=== PATIENT | male | born 1945 | race Caucasian/White ===

== ENCOUNTER 2023-10-14 11:30 | Inpatient (IN) | payer BC, MEDICARE, OTHER ==
[~2023-10-14] VITALS: Ht 180.3 cm; Wt 72.6 kg
[2023-10-14] MEDS ORDERED: METF-442 PO (11:49)
[2023-10-14] MEDS ORDERED: TAMS-3 PO (11:49)
[2023-10-14] MEDS ORDERED: ATOR10TA PO (11:49)
[2023-10-14] MEDS ORDERED: INSU3INS6 SQ (11:49)
[2023-10-14] MEDS ORDERED: RIVA10TA PO (11:49)
[2023-10-14] MEDS ORDERED: BUME2TAB7 PO (11:49)
[2023-10-14] MEDS ORDERED: IRBE150T28 PO (11:49)
[2023-10-14 12:11] LABS: BASOPHILS % (AUTO) 0.5 % (0.0-2.0); EOSINOPHILS # (AUTO) 0.2 K/uL (0.0-0.7); HEMATOCRIT 42.3 % (36.7-47.1); HEMOGLOBIN 14.5 g/dL (12.5-16.3); LYMPHOCYTES # (AUTO) 1.5 K/uL (0.8-4.8); LYMPHOCYTES % (AUTO) 17.8 % (20.5-51.5); MEAN CORPUSCULAR HEMOGLOBIN 31.3 uug (23.8-33.4); MEAN CORPUSCULAR HGB CONC 34 g/dL (32.5-36.3); MEAN CORPUSCULAR VOLUME 91.5 fL (73.0-96.2); MONOCYTES # (AUTO) 0.7 K/uL (0.1-1.30); NEUTROPHILS # (AUTO) 5.9 K/uL (1.8-8.9); NEUTROPHILS % (AUTO) 71.7 % (38.5-71.5); PLATELET COUNT (AUTO) 225 K/uL (152-348); RED BLOOD CELL COUNT(AUTO) 4.62 MIL/uL (4.06-5.63); RED CELL DISTRIBUTION WIDTH 14.2 % (12.1-16.2); WHITE BLOOD COUNT (AUTO) 8.2 K/uL (3.6-10.2)
[2023-10-14 12:25] LABS: DIFFERENTIAL COMMENT 1
[2023-10-14 12:46] LABS: AMMONIA 15 umol/L (11-32)
[2023-10-14 12:52] LABS: CALCIUM 9.2 mg/dL (8.5-10.1); CARBON DIOXIDE 32 mmol/L (21-32); CHLORIDE 99 mmol/L (98-107); CREATININE 1.4 mg/dL (0.6-1.3); GLUCOSE 129 mg/dL (74-106); POTASSIUM 3.7 mmol/L (3.5-5.1); SODIUM SERUM 139 mmol/L (136-145); UREA NITROGEN, BLOOD 32 mg/dL (7-18)
[2023-10-14 13:00] LABS: ALANINE AMINOTRANSFERASE 18 U/L (16-63); ALBUMIN 3.2 g/dL (3.4-5.0); ALKALINE PHOSPHATASE 155 U/L (50-136); ASPARTATE AMINOTRANSFERASE 19 U/L (15-37); BILIRUBIN,DIRECT 0.2 mg/dL (0.0-0.2); BILIRUBIN,TOTAL 0.9 mg/dL (0.2-1.0); TOTAL PROTEIN, SERUM 8.2 g/dL (6.4-8.2)
[2023-10-14 13:02] LABS: ETHANOL < 3 MG/DL (0-10)
[2023-10-14 13:20] LABS: ACETAMINOPHEN < 2.0 ug/mL (10-30)
[2023-10-14 13:24] LABS: LACTIC ACID 2.1 mmol/L (0.4-2.0)
[2023-10-14] MEDS ORDERED: hydrALAZINE HCL 25 MG TABLET PO PRN (17:15)
[2023-10-14] MEDS ORDERED: ACETAMINOPHEN 325 MG TABLET PO PRN (17:15)
[2023-10-14] MEDS ORDERED: ONDANSETRON 4 MG/2 ML VIAL IV PRN (17:15)
[2023-10-14] MEDS ORDERED: DEXTROSE 50% 50 ML DISP.SYRIN IV PRN (17:15)
[2023-10-14] MEDS ORDERED: TEMAZEPAM 15 MG CAPSULE PO PRN (17:15)
[2023-10-14 18:36] VITALS: BP 132/46; TEMP 98; O2SAT 99
[2023-10-14 19:56] VITALS: BP 117/46; TEMP 97.8; O2SAT 99
[2023-10-14] MEDS: DOCUSATE SODIUM 250 MG CAPSULE PO SCH (20:37)
[2023-10-14] MEDS: ATORVASTATIN 10 MG TABLET PO SCH (20:37)
[2023-10-14] MEDS: TAMSULOSIN HCL 0.4 MG CAP.SR.24H PO SCH (20:37)
[2023-10-14] MEDS: BLOOD SUGAR DIAGNOSTIC 1 EACH STRIP VI SCH (20:38)
[2023-10-14] MEDS: INSULIN REGULAR, HUMAN 300 UNIT/3 ML VIAL SQ PRN (20:45)
[2023-10-15 00:05] VITALS: BP 110/43; TEMP 97.8; O2SAT 98
[2023-10-15 04:30] VITALS: BP 113/46; TEMP 97.4; O2SAT 97
[2023-10-15] MEDS: PANTOPRAZOLE SODIUM 40 MG TABLET.DR PO SCH (06:07)
[2023-10-15 07:16] LABS: BASOPHILS % (AUTO) 0.2 % (0.0-2.0); EOSINOPHILS # (AUTO) 0.2 K/uL (0.0-0.7); EOSINOPHILS % (AUTO) 3.1 % (0.0-7.0); HEMATOCRIT 38.7 % (36.7-47.1); HEMOGLOBIN 13.3 g/dL (12.5-16.3); LYMPHOCYTES # (AUTO) 1.2 K/uL (0.8-4.8); LYMPHOCYTES % (AUTO) 17.4 % (20.5-51.5); MEAN CORPUSCULAR HEMOGLOBIN 31.4 uug (23.8-33.4); MEAN CORPUSCULAR HGB CONC 34 g/dL (32.5-36.3); MEAN CORPUSCULAR VOLUME 91.3 fL (73.0-96.2); MONOCYTES # (AUTO) 0.6 K/uL (0.1-1.30); MONOCYTES % (AUTO) 8.5 % (0.0-11.0); NEUTROPHILS # (AUTO) 4.8 K/uL (1.8-8.9); NEUTROPHILS % (AUTO) 70.8 % (38.5-71.5); PLATELET COUNT (AUTO) 209 K/uL (152-348); RED BLOOD CELL COUNT(AUTO) 4.24 MIL/uL (4.06-5.63); WHITE BLOOD COUNT (AUTO) 6.8 K/uL (3.6-10.2)
[2023-10-15 07:19] LABS: DIFFERENTIAL COMMENT 1
[2023-10-15 07:29] LABS: THYROID STIMULATING HORMONE 4.619 mIU/mL (0.358-3.740)
[2023-10-15 08:00] VITALS: BP 129/70; TEMP 97.5; O2SAT 100
[2023-10-15 08:12] LABS: ALANINE AMINOTRANSFERASE 13 U/L (16-63); ALBUMIN 2.5 g/dL (3.4-5.0); ALKALINE PHOSPHATASE 136 U/L (50-136); ASPARTATE AMINOTRANSFERASE 12 U/L (15-37); BILIRUBIN,TOTAL 0.5 mg/dL (0.2-1.0); CALCIUM 8.7 mg/dL (8.5-10.1); CARBON DIOXIDE 31 mmol/L (21-32); CHLORIDE 100 mmol/L (98-107); CHOLESTEROL 91 mg/dL (<200); CREATININE 1.3 mg/dL (0.6-1.3); GLUCOSE 154 mg/dL (74-106); HDL CHOLESTEROL 41 mg/dL (40-60); MAGNESIUM 2.5 mg/dL (1.8-2.4); PHOSPHOROUS 3.8 mg/dL (2.5-4.9); POTASSIUM 3.6 mmol/L (3.5-5.1); SODIUM SERUM 138 mmol/L (136-145); TOTAL PROTEIN, SERUM 7.1 g/dL (6.4-8.2); TRIGLYCERIDES 43 MG/DL (30-150); UREA NITROGEN, BLOOD 32 mg/dL (7-18)
[2023-10-15 08:35] LABS: IRON, SERUM 49 ug/dL (50-175)
[2023-10-15] MEDS ORDERED: RIVAROXABAN 10 MG TABLET PO SCH (09:00)
[2023-10-15 11:54] VITALS: BP 109/60; TEMP 97.6
[2023-10-15 16:00] VITALS: BP 132/57; TEMP 97.5; O2SAT 97
[2023-10-15 20:00] VITALS: BP 110/34; TEMP 97.8; O2SAT 95
[2023-10-15] MEDS: DOCUSATE SODIUM 100 MG CAPSULE PO SCH (20:35)
[2023-10-16] VITALS: BP 117/41; TEMP 98.4; O2SAT 97
[2023-10-16 04:00] VITALS: BP 110/36; TEMP 97.6; O2SAT 98
[2023-10-16 07:31] LABS: CALCIUM 8.7 mg/dL (8.5-10.1); CREATININE 1.3 mg/dL (0.6-1.3); POTASSIUM 3.7 mmol/L (3.5-5.1)
[2023-10-16 08:00] VITALS: BP 118/44; TEMP 97.9; O2SAT 97
[2023-10-16] MEDS ORDERED: LIDOCAINE 1%-EPI 1:100,000 20 ML VIAL ONE (11:46)
[2023-10-16] MEDS ORDERED: IOHEXOL-240 MG , 50 ML VIAL IV ONE (11:46)
[2023-10-16] MEDS ORDERED: LIDOCAINE HCL 1% 20 ML VIAL ONE (11:46)
[2023-10-16 12:00] VITALS: BP 119/42; TEMP 98; O2SAT 100
[2023-10-16] MEDS ORDERED: MIDAZOLAM HCL 2 MG/2 ML VIAL ONE (13:00)
[2023-10-16] MEDS ORDERED: CLINDAMYCIN 600 MG PIGGYBACK**ER OMNI IV ONE ×2 (13:00→13:04)
[2023-10-16] MEDS ORDERED: FENTANYL CITRATE 100 MCG/2 ML AMPUL ONE (13:00)
[2023-10-16 16:00] VITALS: BP_SYST 140; BP_SYST 159; BP_DIAS 60; BP_DIAS 72; TEMP 97.1; TEMP 97.8; O2SAT 100
[2023-10-16 20:00] VITALS: BP 140/50; TEMP 98; O2SAT 99
[2023-10-17] VITALS: BP 128/57; TEMP 98.2; O2SAT 99
[2023-10-17 04:00] VITALS: BP 147/65; TEMP 97.9; O2SAT 98
[2023-10-17 07:14] LABS: CALCIUM 8.7 mg/dL (8.5-10.1); CREATININE 1.2 mg/dL (0.6-1.3)
[2023-10-17 08:00] VITALS: BP 140/61; TEMP 98.2; O2SAT 97
[2023-10-17 12:00] VITALS: BP 138/76; TEMP 98; O2SAT 97
== END 2023-10-17 13:02 | disposition home or self-care (01) | DRG 242 ==
LOC: ER 11:30 → TELE3 15:55
PROVIDERS: ADMIT Internal Medicine; ATTEND Internal Medicine
PROC: 0JH605Z Insertion of Pacemaker, Single Chamber Rate Responsive into Chest Subcutaneous Tissue and Fascia, Open Approach (ICD-10-PCS; principal; 2023-10-16)
PROC: 02HK0JZ Insertion of Pacemaker Lead into Right Ventricle, Open Approach (ICD-10-PCS; 2023-10-16)
DX: I49.5 Sick sinus syndrome (principal); N17.0 Acute kidney failure with tubular necrosis; I48.19 Other persistent atrial fibrillation; I31.39 Other pericardial effusion (noninflammatory); E44.1 Mild protein-calorie malnutrition; E87.20 Acidosis, unspecified; J98.11 Atelectasis; R00.1 Bradycardia, unspecified; E86.0 Dehydration; Z95.2 Presence of prosthetic heart valve; E78.5 Hyperlipidemia, unspecified; N40.0 Benign prostatic hyperplasia without lower urinary tract symptoms; Z79.01 Long term (current) use of anticoagulants; Z79.84 Long term (current) use of oral hypoglycemic drugs; Z79.899 Other long term (current) drug therapy; Z79.4 Long term (current) use of insulin; E04.1 Nontoxic single thyroid nodule; Z88.0 Allergy status to penicillin; I44.7 Left bundle-branch block, unspecified; I27.20 Pulmonary hypertension, unspecified; E88.09 Other disorders of plasma-protein metabolism, not elsewhere classified; E03.9 Hypothyroidism, unspecified; R79.1 Abnormal coagulation profile; T38.3X5A Adverse effect of insulin and oral hypoglycemic [antidiabetic] drugs, initial encounter; Y92.019 Unspecified place in single-family (private) house as the place of occurrence of the external cause; I13.10 Hypertensive heart and chronic kidney disease without heart failure, with stage 1 through stage 4 chronic kidney disease, or unspecified chronic kidney disease; E11.22 Type 2 diabetes mellitus with diabetic chronic kidney disease; N18.9 Chronic kidney disease, unspecified
CPT/HCPCS: 36415; 70450; 71045; 71250; 83550; 83605; 83735; 84100; 84443; 84484; 85025; 85730; 86850; 86900; 86901; 87040; 93005; 93307; A4606; A4649; A4663; C1786; G0378; G0480; J1815; J2250; J3010; J3490; Q9966